=== PATIENT | male | born 1945 | race Two or more races ===

== ENCOUNTER 2020-07-22 14:15 | Outpatient (CLI) | payer OTHER | END 2020-07-22 14:16 | disposition home or self-care (01) | LOC: LAB 14:15 | PROVIDERS: ATTEND Urology | DX: R97.20 Elevated prostate specific antigen [PSA] (principal) ==

== ENCOUNTER → 2020-09-07 | Outpatient (CLI) | payer OTHER | END | disposition home or self-care (01) | LOC: SONOGRAMA 07:30 | PROVIDERS: ATTEND Urology | DX: D29.1 Benign neoplasm of prostate (principal); R97.20 Elevated prostate specific antigen [PSA] ==

== ENCOUNTER 2020-09-21 12:45 | Outpatient (CLI) | payer OTHER | END 2020-09-21 12:48 | disposition home or self-care (01) | LOC: LAB 12:45 | PROVIDERS: ATTEND Radiology Diagnostic Radiology | DX: C61 Malignant neoplasm of prostate (principal); Z51.81 Encounter for therapeutic drug level monitoring ==

== ENCOUNTER 2020-09-27 10:01 | Outpatient (CLI) | payer OTHER | END 2020-09-27 10:14 | disposition home or self-care (01) | LOC: TOM 10:01 | PROVIDERS: ATTEND Urology | DX: R31.1 Benign essential microscopic hematuria (principal); C61 Malignant neoplasm of prostate | CPT/HCPCS: 74177; Q9965 ==

== ENCOUNTER → 2020-10-05 | Outpatient (CLI) | payer OTHER | END | disposition home or self-care (01) | LOC: NUCLEAR 07:30 | PROVIDERS: ATTEND Urology | DX: C61 Malignant neoplasm of prostate (principal); R97.20 Elevated prostate specific antigen [PSA] | CPT/HCPCS: 78803; A9503 ==